=== PATIENT | male | born 1990 | race Caucasian/White ===

== ENCOUNTER 2022-04-10 09:10 | Emergency (ER) | payer SELFPAY ==
[~2022-04-10] VITALS: Ht 170.2 cm; Wt 70.8 kg
[2022-04-10 09:19] VITALS: BP 146/95
--- NOTE | 2022-04-10 09:34 | NUR ---
32M presents to ED with c/o intermittent nausea, diarrhea, fevers and chills x 3 months, and ABD pain x 4 months. Pt reports being seen in [facility] in 3 different occassions, was Rx unknown antibiotic for infection; pt does not recall what type of infection he had. Pt recently arrived to [place] with worsening pain. Pt reports intermittent, pressure like, 8/10 pain to left upper and lower quadrants. Pt reports taking Tylenol for pain with no relief, denies use in last five days. Pt reports nausea with no episodes of vomiting. Pt denies diarrhea today, last episode was 4 days ago. Pt denies fevers and chills upon assessment. Pt changed into gown bed set to lowest position, side rails x1.
[2022-04-10] MEDS ORDERED: KETOROLAC 15 MG/ML VIAL IVP ONE (09:40)
--- NOTE | 2022-04-10 09:44 | NUR ---
PT AMBULATED TO RESTROOM
--- NOTE | 2022-04-10 09:46 | NUR ---
PT AMBULATED BACK TO ROOM
--- NOTE | 2022-04-10 09:51 | NUR ---
32YO MALE PT C/O CONSTANT L ABDOMINAL PAIN [id number]. REPORTS INTERMITTENT DIARRHEA, FEVER ,CHILLS, DIZZINESS, NAUSEA AND DYSURIA X4DAYS. STATES TAKING ANTIBIOTICS GIVEN BY PCP FOR "POSSIBLE INFECTION" W/O RELIEF. NOTES RECENT 10LBS WEIGHT LOSS. ABDOMEN FLAT, TENDER , ACTIVE X4. PT AAOX4, NO VISIBLE DISTRESS. ON [employer]. MONGOLIAN SPEAKING HX:DENIES NKA
[2022-04-10 09:56] LABS: BASOPHILS # (AUTO) 0.1 K/uL (0.00-0.22); BASOPHILS % (AUTO) 0.9 % (0.0-2.0); EOSINOPHILS # (AUTO) 0.1 K/uL (0-0.4); EOSINOPHILS % (AUTO) 1.5 % (0.0-4.0); HEMATOCRIT 46.8 % (36-52); HEMOGLOBIN 16.8 g/dL (12.0-18.0); LYMPHOCYTES # (AUTO) 1.4 K/uL (2.0-11.5); LYMPHOCYTES % (AUTO) 15.6 % (20.5-51.1); MEAN CORPUSCULAR HEMOGLOBIN 32 pg (27-31); MEAN CORPUSCULAR HGB CONC 36 g/dL (33-37); MEAN CORPUSCULAR VOLUME 88.1 fL (80-94); MONOCYTES # (AUTO) 0.5 K/uL (0.8-1.0); MONOCYTES % (AUTO) 5.7 % (1.7-9.3); NEUTROPHILS % (AUTO) 76.3 % (42.2-75.2); PLATELET COUNT (AUTO) 264 K/uL (140-450); RED BLOOD CELL COUNT(AUTO) 5.32 MIL/uL (4.20-6.10); RED CELL DISTRIBUTION WIDTH 12.7 % (11.6-13.7); WHITE BLOOD COUNT (AUTO) 9.1 K/uL (4.8-10.8)
[2022-04-10 09:58] LABS: APPEARANCE,URINE CLEAR (CLEAR); BILIRUBIN,URINE NEGATIVE (NEGATIVE); BLOOD, URINE NEGATIVE (NEGATIVE); COLOR,URINE YELLOW (YELLOW); LEUKOCYTE ESTERASE ,URINE NEGATIVE (NEGATIVE); NITRITE, URINE NEGATIVE (NEGATIVE); UGLUCOSE NEGATIVE (NEGATIVE)
[2022-04-10 10:10] LABS: BARBITURATE, URINE NEGATIVE ng/ml (NEG <=200); BENZODIAZEPINE, URINE NEGATIVE ng/mL (NEG <=200); CANNABINOID, URINE NEGATIVE ng/mL (NEG <=50); COCAINE, URINE NEGATIVE ng/mL (NEG <=300); OPIATE, URINE NEGATIVE ng/mL (NEG <=2000); PHENCYCLIDINE SCREEN,URINE NEGATIVE ng/mL (NEG <=25)
[2022-04-10 10:14] LABS: ALBUMIN 4.6 g/dL (3.4-5.0); CARBON DIOXIDE 26.8 mmol/L (21-32); POTASSIUM 3.8 mmol/L (3.5-5.1); TOTAL BILIRUBIN 1.9 mg/dL (0.0-1.0)
--- NOTE | 2022-04-10 10:57 | NUR ---
PT TAKEN TO CT VIA SILVIO
--- NOTE | 2022-04-10 11:16 | NUR ---
PT BROUGHT BACK VIA SILVIO
--- NOTE | 2022-04-10 11:18 | NUR ---
XRAY AT BEDSIDE
[2022-04-10 12:16] VITALS: BP 124/76
[2022-04-10] MEDS ORDERED: BEN10 PO (13:22)
[2022-04-10] MEDS ORDERED: ONDA-188 PO (13:22)
[2022-04-10] MEDS ORDERED: IBUP-2213 PO (13:22)
--- NOTE | 2022-04-10 13:32 | NUR ---
IV removed, catheter intact and site benign. Applied folded 4x4 gauze and tape to stop bleeding.
--- NOTE | 2022-04-10 13:33 | NUR ---
Patient discharged with v/s stable. Written and verbal after care instructions FOR N/V given and explained. Patient alert, oriented and verbalized understanding of instructions. Ambulatory with . All questions addressed prior to discharge. ID band removed. Patient advised to follow up with PMD. Rx of BENTLY , IBUPROFEN AND ZOFRAN given. Opportunity to ask questions provided and answered.
== END 2022-04-10 13:33 | disposition home or self-care (01) ==
LOC: MED 09:10
DX: R10.12 Left upper quadrant pain (principal); R10.32 Left lower quadrant pain; R19.7 Diarrhea, unspecified; R53.81 Other malaise; I10 Essential (primary) hypertension; Z79.899 Other long term (current) drug therapy
CPT/HCPCS: 36415; 71045; 74177; 80053; 80305; 81003; 83690; 84443; 85025; 85651; 86140; 96374; 99285; J1885; Q0092; Q9967

== ENCOUNTER 2022-04-23 09:53 | Emergency (ER) | payer MEDICAID ==
[~2022-04-23] VITALS: Ht 170.2 cm; Wt 70.3 kg
[~2022-04-23 09:53] MED LIST: BEN10 PO; IBUP-2213 PO; ONDA-188 PO
[2022-04-23 09:58] VITALS: BP 135/75
--- NOTE | 2022-04-23 10:01 | NUR ---
AMBULATED TO ER BED 9
--- NOTE | 2022-04-23 10:05 | NUR ---
32 Y/O MALE BIB SELF C/O RECTAL PAIN X4 MONTHS. PER PT HE WAS SEEN BY PCP AND DX WITH HEMORRHOIDS, GIVEN MEDICATIONS WITH NO RELIEF OF S/S, UNK NAME. DENIES ANY ABD PAIN, BLOOD IN STOOL OR NV. PMH: DENIES NKDA
--- NOTE | 2022-04-23 10:43 | NUR ---
Rectal exam performed per DR MALCOLM with [employer] at bedside during procedure. Patient tolerated well.
[2022-04-23] MEDS ORDERED: CIPR500T4 PO (10:53)
[2022-04-23] MEDS ORDERED: IBUP-2213 PO (10:53)
--- NOTE | 2022-04-23 10:58 | NUR ---
Patient discharged with v/s stable. Written and verbal after care instructions ABOUT PROSTATITIS given and explained. Patient alert, oriented and verbalized understanding of instructions. Ambulatory with steady gait. All questions addressed prior to discharge. ID band removed. Patient advised to follow up with PMD. Rx of CIPRO, MOTRIN given. Patient educated on indication of medication including possible reaction and side effects. Opportunity to ask questions provided and answered.
== END 2022-04-23 10:58 | disposition home or self-care (01) ==
LOC: MED 09:53
DX: N41.9 Inflammatory disease of prostate, unspecified (principal)
CPT/HCPCS: 99283